=== PATIENT | female | born 1990 | race Caucasian/White ===

== ENCOUNTER 2020-10-08 04:52 | Outpatient (CLI) | payer BC | END 2020-10-08 06:30 | disposition home or self-care (01) | LOC: GENOP 04:52 | DX: O36.8130 Decreased fetal movements, third trimester, not applicable or unspecified (principal); O42.913 Preterm premature rupture of membranes, unspecified as to length of time between rupture and onset of labor, third trimester; Z3A.35 35 weeks gestation of pregnancy | CPT/HCPCS: 59025; 83518 ==

== ENCOUNTER 2020-10-29 10:09 | Inpatient (IN) | payer BC ==
[~2020-10-29] VITALS: Ht 167.6 cm; Wt 82.6 kg
[2020-10-29 11:23] LABS: HEMOGLOBIN 11.2 gm/dl (12.3-15.3); RED BLOOD COUNT 3.81 M/UL (4.00-5.10); WHITE BLOOD COUNT 12.6 K/UL (4.5-11.0)
[2020-10-29] MEDS ORDERED: PRENATAL VITAM1 EAC3 PO (11:35)
[2020-10-30 06:15] LABS: HEMOGLOBIN 9.3 gm/dl (12.3-15.3)
[2020-10-30] MEDS ORDERED: DOCUSATE SODIU100 MG PO (17:05)
[2020-10-30] MEDS ORDERED: IBUPROFEN600 MG PO (17:05)
== END 2020-10-30 18:05 | disposition home or self-care (01) | DRG 805 ==
LOC: GENOP 10:09 → OB 15:15
PROVIDERS: ADMIT Obstetrics & Gynecology
PROC: 10E0XZZ Delivery of Products of Conception, External Approach (ICD-10-PCS; principal; 2020-10-29)
PROC: 0KQM0ZZ Repair Perineum Muscle, Open Approach (ICD-10-PCS; 2020-10-29)
PROC: 10907ZC Drainage of Amniotic Fluid, Therapeutic from Products of Conception, Via Natural or Artificial Opening (ICD-10-PCS; 2020-10-29)
PROC: 3E0234Z Introduction of Serum, Toxoid and Vaccine into Muscle, Percutaneous Approach (ICD-10-PCS; 2020-10-30)
DX: O69.81X0 Labor and delivery complicated by cord around neck, without compression, not applicable or unspecified (principal); U07.1 COVID-19; Z37.0 Single live birth; O36.0930 Maternal care for other rhesus isoimmunization, third trimester, not applicable or unspecified; O98.52 Other viral diseases complicating childbirth; Z3A.38 38 weeks gestation of pregnancy; O70.1 Second degree perineal laceration during delivery; O69.2XX0 Labor and delivery complicated by other cord entanglement, with compression, not applicable or unspecified; O77.0 Labor and delivery complicated by meconium in amniotic fluid; Z23 Encounter for immunization
CPT/HCPCS: 36415; 81001; 82800; 85014; 85018; 85025; 86900; 86901; 90715; J2590; J7120; U0002